=== PATIENT | male | born 1940 | race Caucasian/White ===

== ENCOUNTER 2017-01-20 18:45 | Inpatient (IN) | payer MEDICARE, BC ==
[2017-01-20] MEDS ORDERED: MORPHINE SULFATE 4 MG/ML SYRINGE IVP STA (18:59)
[2017-01-20] MEDS ORDERED: RX INFO: IV CONTRAST WAS GIVEN 1 EACH MISC MISCELLANE PRN (18:59)
[2017-01-20] MEDS ORDERED: ONDANSETRON 4 MG/2 ML VIAL IVP STA (18:59)
[2017-01-20] MEDS ORDERED: SODIUM CHLORIDE 0.9% 500 ML IV STA (18:59)
--- NOTE | 2017-01-20 19:01 | ED ---
General Adult HPI - General Chief complaint: Abdominal Pain Stated complaint: Abd Pain Time Seen by Provider: 01/20/17 18:47 Source: EMS Mode of arrival: EMS - History of Present Illness Initial comments: 77-year-old male presented for abdominal pain. Patient states symptoms began about 5 days ago would've been gradually worsening. States the pain got much worse today. He has had associated nausea and vomiting today. He denies any fevers or chills. He denies any diarrhea. He denies any chest pain or shortness of breath. He does state that he lost his one month ago and this is been hard on him. He denies any history of depression or current depression. He denies any abdominal surgical history. - Related Data Home Medications Medication Instructions Recorded Confirmed Allopurinol [Zyloprim] 100 mg PO DAILY 03/05/15 01/20/17 Meloxicam 15 mg PO DAILY 03/05/15 01/20/17 Simvastatin [Zocor] 20 mg PO HS 03/05/15 01/20/17 Tamsulosin [Flomax] 0.4 mg PO DAILY 03/05/15 01/20/17 Cholecalciferol [Vitamin D3] 5,000 unit PO DAILY 01/20/17 01/20/17 Allergies Allergy/AdvReac Type Severity Reaction Status Date / Time shellfish derived [Lobster] Allergy Rash/Hives Verified 01/20/17 19:16 Review of Systems ROS Statement: Those systems with pertinent positive or pertinent negative responses have been documented in the HPI. ROS Other: All systems not noted in ROS Statement are negative. Past Medical History Past Medical History: Cancer, Hyperlipidemia, Osteoarthritis (OA) Additional Past Medical History / Comment(s): prostate CA; gout History of Any Multi-Drug Resistant Organisms: None Reported Past Surgical History: Back Surgery, Hernia Repair, Prostate Surgery Additional Past Surgical History / Comment(s): hemorrhoids surg.; colonoscopy Past Anesthesia/Blood Transfusion Reactions: No Reported Reaction Smoking Status: Former smoker Past Alcohol Use History: None Reported Past Drug Use History: None Reported - Past Family History Sister(s) Family Medical History: Cancer General Exam - General Exam Comments Initial Comments: General: Awake and Alert. No acute distress. Patient appears uncomfortable.. Eyes: [place], EOM intact. No nystagmus. No scleral icterus. HENT: Atraumatic, normocephalic. Mucous membranes moist. Trachea midline. Neck: The neck is supple, there is no tenderness or JVD. Cardiovascular: Regular rate and rhythm. No murmur, rub, or gallop is appreciated. Distal pulses intact. Respiratory: Lungs are clear to auscultation bilaterally. No wheezes, rales, rhonchi. No respiratory distress. Gastrointestinal: Soft, diffuse tenderness with rebound. Non-distended. No masses or organomegaly noted. No CVA tenderness. Musculoskeletal: No tenderness. Normal ROM. No gross deformity. No strength deficits. Neurological: A&Ox3. CN II-XII grossly intact, There are no obvious motor or sensory deficits. Coordination appears grossly intact. Speech is normal. Skin: Skin is warm and dry and no rashes or lesions are noted. Psychiatric: Cooperative, appropriate mood & affect, normal judgment. Course Vital Signs 01/20/17 01/20/17 01/20/17 18:46 20:46 22:53 Temperature 97.6 F 97.9 F 97.4 F L Pulse Rate 79 87 62 Respiratory 16 16 15 Rate Blood Pressure 148/70 121/74 117/58 O2 Sat by Pulse 100 100 96 Oximetry Medical Decision Making - Medical Decision Making 37-year-old male presented for abdominal pain and nausea and vomiting. On initial exam patient with diffuse abdominal tenderness concerning for possible peritonitis. Lab work and imaging ordered. Pain and nausea medications and IV fluids ordered. CT abdomen and pelvis with evidence of SBO. Lab work with leukocytosis, likely reactive without CT evidence of infectious process. BMP stable. LFTs stable. Lipase negative. UA without evidence of infection Patient reevaluated, feeling much improved. Updated on results and imaging. Discussed recommendation for admission. Patient and family agreeable. Does not appear to require NG decompression at this time, but did discuss this with patient and will be required if condition worsens. I spoke with Dr. Mckeon, agrees with admission. I spoke with Dr. Cabello regarding medical management. - Lab Data Result diagrams: 01/20/17 18:50 01/20/17 18:50 Lab Results 01/20/17 01/20/17 01/20/17 Range/Units 18:50 18:50 20:35 WBC 14.7 H (3.8-10.6) k/uL RBC 5.37 (4.30-5.90) m/uL Hgb 16.0 (13.0-17.5) gm/dL Hct 47.5 (39.0-53.0) % MCV 88.6 (80.0-100.0) fL MCH 29.8 (25.0-35.0) pg MCHC 33.7 (31.0-37.0) g/dL RDW 12.9 (11.5-15.5) % Plt Count 232 (150-450) k/uL Neutrophils % 91 % Lymphocytes % 3 % Monocytes % 4 % Eosinophils % 1 % Basophils % 0 % Neutrophils # 13.3 H (1.3-7.7) k/uL Lymphocytes # 0.5 L (1.0-4.8) k/uL Monocytes # 0.6 (0-1.0) k/uL Eosinophils # 0.1 (0-0.7) k/uL Basophils # 0.0 (0-0.2) k/uL Sodium 139 (137-145) mmol/L Potassium 4.5 (3.5-5.1) mmol/L Chloride 107 (98-107) mmol/L Carbon Dioxide 16 L (22-30) mmol/L Anion Gap 16 mmol/L BUN 23 H (9-20) mg/dL Creatinine 0.90 (0.66-1.25) mg/dL Est GFR (MDRD) Af Amer >60 (>60 ml/min/1.73 sqM) Est GFR (MDRD) Non-Af >60 (>60 ml/min/1.73 sqM) Glucose 114 H (74-99) mg/dL Calcium 10.5 H (8.4-10.2) mg/dL Magnesium 1.8 (1.6-2.3) mg/dL Total Bilirubin 1.4 H (0.2-1.3) mg/dL AST 30 (17-59) U/L ALT 32 (21-72) U/L Alkaline Phosphatase 70 (38-126) U/L Total Protein 7.4 (6.3-8.2) g/dL Albumin 4.6 (3.5-5.0) g/dL Lipase 144 (23-300) U/L Urine Color Yellow Urine Appearance Clear (Clear) Urine pH 7.5 (5.0-8.0) Ur Specific [place] 1.016 (1.001-1.035) Urine Protein Trace H (Negative) Urine Glucose (UA) Negative (Negative) Urine Ketones 3+ H (Negative) Urine Blood Negative (Negative) Urine Nitrite Negative (Negative) Urine Bilirubin Negative (Negative) Urine Urobilinogen <2.0 (<2.0) mg/dL Ur Leukocyte Esterase Negative (Negative) - Radiology Data Radiology results: report reviewed, image reviewed Disposition Clinical Impression: SBO (small bowel obstruction), Abdominal pain, Nausea and vomiting, Leukocytosis Disposition: ADMITTED IP TO THIS [facility] Condition: Stable Decision to Admit Reason: Admit from EC
[2017-01-20 19:21] LABS: Basophils % (A) 0 %; Eosinophils # (A) 0.1 k/uL (0-0.7); Eosinophils % (A) 1 %; HCT 47.5 % (39.0-53.0); HDW 2.78; Luc # (Auto) 0.13; Luc % (Auto) 1; Lymphocytes # (A) 0.5 k/uL (1.0-4.8); Lymphocytes % (A) 3 %; MCH 29.8 pg (25.0-35.0); MCHC 33.7 g/dL (31.0-37.0); MCV 88.6 fL (80.0-100.0); Monocytes # (A) 0.6 k/uL (0-1.0); Monocytes % (A) 4 %; Neutrophils # (A) 13.3 k/uL (1.3-7.7); Neutrophils % (A) 91 %; RBC 5.37 m/uL (4.30-5.90); RDW 12.9 % (11.5-15.5); WBC 14.7 k/uL (3.8-10.6); WBC (Perox) 14.55
[2017-01-20 20:36] LABS: ALT 32 U/L (21-72); AST 30 U/L (17-59); Alkaline Phosphatase 70 U/L (38-126); Anion Gap 16 mmol/L; Blood Urea Nitrogen 23 mg/dL (9-20); Calcium 10.5 mg/dL (8.4-10.2); Carbon Dioxide 16 mmol/L (22-30); Chloride 107 mmol/L (98-107); Glucose 114 mg/dL (74-99); Magnesium 1.8 mg/dL (1.6-2.3); Non-African American GFR(MDRD) >60 (>60 ml/min/1.73 sqM); Potassium 4.5 mmol/L (3.5-5.1); Sodium 139 mmol/L (137-145); Total Bilirubin 1.4 mg/dL (0.2-1.3); Total Protein 7.4 g/dL (6.3-8.2)
[2017-01-20 21:14] LABS: Appearance,Urine Clear (Clear); Bilirubin,Urine Negative (Negative); Glucose,Urine (UA) Negative (Negative); Ketones,Urine 3+ (Negative); Leukocyte Esterase,Urine Negative (Negative); Nitrite,Urine Negative (Negative); PH, Urine 7.5 (5.0-8.0); Protein,Urine Trace (Negative); Specific Gravity,Urine 1.016 (1.001-1.035); UA Billing (MACRO vs. MICRO) CHEM; Urobilinogen,Urine <2.0 mg/dL (<2.0)
--- NOTE | 2017-01-20 21:26 | CT ---
EXAMINATION TYPE: CT abdomen pelvis w con DATE OF EXAM: 01/20/2017 9:16 PM COMPARISON: NONE HISTORY: Generalized Abdominal pain. History of prostate cancer CT DLP: 876.3 mGycm CONTRAST: CT scan of the abdomen and pelvis is performed without Oral Contrast and with IV Contrast, patient in jected with 100 mL of Omnipaque 300. FINDINGS: LUNG BASES-: No visible nodule. No infiltrate. LIVER/GB: No calcified gallstones. Small hepatic cyst inferior portion of the liver. Biliary tree i s of normal caliber. PANCREAS: No inflammation. No distinct mass. SPLEEN: No splenic enlargement. No lesion seen. ADRENALS: No nodule. No thickening. KIDNEYS/BLADDER: No hydronephrosis. No nephrolithiasis. No disctinct renal mass. Urinary bladder g rossly unremarkable. BOWEL: Dilated stomach and small bowel up to the right lower quadrant where there appears to be a tra nsition zone. Small bowel loops measure up to approximately 3.2 cm in greatest dimension demonstrates equalization. The findings are suspicious for early complete or high-grade partial obstruction. Ther e is decompressed distal small bowel. Large bowel contains fecal debris. Edema of the small bowel mes entery. GENITAL ORGANS: No gross abnormality. LYMPH NODES: No greater than 1cm abdominal or pelvic lymph nodes are appreciated. AORTA: No significant abnormality. OSSEOUS STRUCTURES: Severe degenerative changes throughout thoracolumbar spine. Postoperative changes lumbar spine. OTHER: No significant additional abnormality is seen. IMPRESSION: 1. The findings are suspicious for early complete or high-grade partial obstruction mid ileum.
[2017-01-20] MEDS ORDERED: SODIUM CHLORIDE 0.9% 1,000 ML IV STA (21:38)
[2017-01-20] MEDS ORDERED: MORPHINE SULFATE 4 MG/ML SYRINGE IV PRN (22:37)
[2017-01-20] MEDS ORDERED: HYDROcodone/APAP 5-325MG 1 EACH TAB PO PRN (22:37)
[2017-01-20] MEDS ORDERED: ACETAMINOPHEN TAB 325 MG TAB PO PRN (22:37)
[2017-01-20] MEDS ORDERED: ONDANSETRON 4 MG/2 ML VIAL IVP PRN (22:37)
[2017-01-20] MEDS ORDERED: NALOXONE 0.4 MG/ML 1 ML VIAL IV PRN (22:37)
[2017-01-21 00:33] VITALS: RESP 16
[2017-01-21] MEDS: LACTATED RINGERS 1,000 ML IV SCH ×3 (05:41→17:49)
[2017-01-21 07:26] LABS: Basophils % (A) 0 %; CH 29.5; CHCM 32.6; Eosinophils # (A) 0.1 k/uL (0-0.7); Eosinophils % (A) 1 %; HCT 44.7 % (39.0-53.0); HDW 2.57; HGB 14.6 gm/dL (13.0-17.5); Luc # (Auto) 0.11; Luc % (Auto) 1; Lymphocytes # (A) 0.6 k/uL (1.0-4.8); Lymphocytes % (A) 6 %; MCH 29.7 pg (25.0-35.0); MCHC 32.7 g/dL (31.0-37.0); MCV 90.9 fL (80.0-100.0); Mean Platelet Volume 8.4; Monocytes # (A) 0.8 k/uL (0-1.0); Monocytes % (A) 7 %; Neutrophils # (A) 9.9 k/uL (1.3-7.7); Neutrophils % (A) 86 %; RBC 4.91 m/uL (4.30-5.90); RDW 13.2 % (11.5-15.5); WBC 11.5 k/uL (3.8-10.6); WBC (Perox) 11.43
[2017-01-21 07:34] LABS: Glucose,Whole Blood 104 mg/dL (75-99)
[2017-01-21 07:44] LABS: Anion Gap 10 mmol/L; Blood Urea Nitrogen 25 mg/dL (9-20); Calcium 9.7 mg/dL (8.4-10.2); Carbon Dioxide 26 mmol/L (22-30); Chloride 106 mmol/L (98-107); Glucose 100 mg/dL (74-99); Magnesium 1.9 mg/dL (1.6-2.3); Non-African American GFR(MDRD) >60 (>60 ml/min/1.73 sqM); Potassium 4.4 mmol/L (3.5-5.1); Sodium 142 mmol/L (137-145)
[2017-01-21] MEDS ORDERED: HEPARIN SODIUM,PORCINE 5,000 UNIT/ML 1 ML VIAL SQ SCH (09:00)
--- NOTE | 2017-01-21 09:36 | P.GSHP ---
History of Present Illness H&P Date: 01/21/17 Chief Complaint: Abdominal pain, vomiting 1 The patient is a 77-year-old man who was in his normal state of health. Yesterday morning he had breakfast and developed discomfort across the Upper andlower abdomen. It felt like his breakfast just "sat there". The discomfort progressed throughout the day. He came into the emergency room last night. He did vomit on the way in and that helped relieve his discomfort. His bowels have been a little slowly bleed. He hadn't had a bowel movement in 3 days which is unusual for him. No blood in the stools or dark tarry stools. Appetite had been unchanged over the last few months. No weight loss. He hasn' t had a colonoscopy in 7 years. Denies any previous abdominal surgeries.He feels much better than when he came into the emergency room. - Review of Systems All systems: negative Past Medical History Past Medical History: Cancer, Hyperlipidemia, Osteoarthritis (OA) Additional Past Medical History / Comment(s): prostate CA; gout History of Any Multi-Drug Resistant Organisms: None Reported Past Surgical History: Adenoidectomy, Back Surgery, Hernia Repair, Prostate Surgery, Tonsillectomy Additional Past Surgical History / Comment(s): hemorrhoids surg.; colonoscopy Past Anesthesia/Blood Transfusion Reactions: No Reported Reaction Past Psychological History: No Psychological Hx Reported Smoking Status: Former smoker Past Alcohol Use History: None Reported Past Drug Use History: None Reported - Past Family History Sister(s) Family Medical History: Cancer Medications and Allergies Home Medications Medication Instructions Recorded Confirmed Type Allopurinol [Zyloprim] 100 mg PO DAILY 03/05/15 01/20/17 History Meloxicam 15 mg PO DAILY 03/05/15 01/20/17 History Simvastatin [Zocor] 20 mg PO HS 03/05/15 01/20/17 History Tamsulosin [Flomax] 0.4 mg PO DAILY 03/05/15 01/20/17 History Cholecalciferol [Vitamin D3] 5,000 unit PO DAILY 01/20/17 01/20/17 History Allergies Allergy/AdvReac Type Severity Reaction Status Date / Time shellfish derived [Lobster] Allergy Rash/Hives Verified 01/20/17 19:16 Surgical - Exam Osteopathic Statement: *. No significant issues noted on an osteopathic structural exam other than those noted in the History and Physical/Consult. Vital Signs Temp Pulse Resp BP Pulse Ox 97.6 F 79 16 148/70 100 01/20/17 18:46 01/20/17 18:46 01/20/17 18:46 01/20/17 18:46 01/20/17 18:46 - General well developed, well nourished, no distress - Eyes normal ocular movement - ENT normal nares, normal mucosa - Neck trachea midline, no lymphadectomy - Respiratory normal respiratory effort, clear to auscultation - Cardiovascular Rhythm: regular - Abdomen Abdomen: soft, tender (Mild epigastric tenderness without guarding or rebound), bowel sounds, no organomegaly, no surgical scars, distended (Mildly tympanitic to percussion, otherwise fairly soft) Results - Labs 01/21/17 07:05 01/21/17 07:05 Abnormal Lab Results - Last 24 Hours (Table) 01/20/17 01/20/17 01/20/17 Range/Units 18:50 18:50 20:35 WBC 14.7 H (3.8-10.6) k/uL Neutrophils # 13.3 H (1.3-7.7) k/uL Lymphocytes # 0.5 L (1.0-4.8) k/uL Carbon Dioxide 16 L (22-30) mmol/L BUN 23 H (9-20) mg/dL Glucose 114 H (74-99) mg/dL POC Glucose (mg/dL) (75-99) mg/dL Calcium 10.5 H (8.4-10.2) mg/dL Total Bilirubin 1.4 H (0.2-1.3) mg/dL Urine Protein Trace H (Negative) Urine Ketones 3+ H (Negative) 01/21/17 01/21/17 01/21/17 Range/Units 07:05 07:05 07:32 WBC 11.5 H (3.8-10.6) k/uL Neutrophils # 9.9 H (1.3-7.7) k/uL Lymphocytes # 0.6 L (1.0-4.8) k/uL Carbon Dioxide (22-30) mmol/L BUN 25 H (9-20) mg/dL Glucose 100 H (74-99) mg/dL POC Glucose (mg/dL) 104 H (75-99) mg/dL Calcium (8.4-10.2) mg/dL Total Bilirubin (0.2-1.3) mg/dL Urine Protein (Negative) Urine Ketones (Negative) Diabetes panel 01/20/17 01/21/17 Range/Units 18:50 07:05 Sodium 139 142 (137-145) mmol/L Potassium 4.5 4.4 (3.5-5.1) mmol/L Chloride 107 106 (98-107) mmol/L Carbon Dioxide 16 L 26 (22-30) mmol/L BUN 23 H 25 H (9-20) mg/dL Creatinine 0.90 0.93 (0.66-1.25) mg/dL Glucose 114 H 100 H (74-99) mg/dL Calcium 10.5 H 9.7 (8.4-10.2) mg/dL AST 30 (17-59) U/L ALT 32 (21-72) U/L Alkaline Phosphatase 70 (38-126) U/L Total Protein 7.4 (6.3-8.2) g/dL Albumin 4.6 (3.5-5.0) g/dL Calcium panel 01/20/17 01/21/17 Range/Units 18:50 07:05 Calcium 10.5 H 9.7 (8.4-10.2) mg/dL Phosphorus 3.0 (2.5-4.5) mg/dL Albumin 4.6 (3.5-5.0) g/dL Pituitary panel 01/20/17 01/21/17 Range/Units 18:50 07:05 Sodium 139 142 (137-145) mmol/L Potassium 4.5 4.4 (3.5-5.1) mmol/L Chloride 107 106 (98-107) mmol/L Carbon Dioxide 16 L 26 (22-30) mmol/L BUN 23 H 25 H (9-20) mg/dL Creatinine 0.90 0.93 (0.66-1.25) mg/dL Glucose 114 H 100 H (74-99) mg/dL Calcium 10.5 H 9.7 (8.4-10.2) mg/dL Adrenal panel 01/20/17 01/21/17 Range/Units 18:50 07:05 Sodium 139 142 (137-145) mmol/L Potassium 4.5 4.4 (3.5-5.1) mmol/L Chloride 107 106 (98-107) mmol/L Carbon Dioxide 16 L 26 (22-30) mmol/L BUN 23 H 25 H (9-20) mg/dL Creatinine 0.90 0.93 (0.66-1.25) mg/dL Glucose 114 H 100 H (74-99) mg/dL Calcium 10.5 H 9.7 (8.4-10.2) mg/dL Total Bilirubin 1.4 H (0.2-1.3) mg/dL AST 30 (17-59) U/L ALT 32 (21-72) U/L Alkaline Phosphatase 70 (38-126) U/L Total Protein 7.4 (6.3-8.2) g/dL Albumin 4.6 (3.5-5.0) g/dL - Imaging CT scan - pelvis: report reviewed, image reviewed Assessment and Plan (1) Gout Status: Acute (2) Nausea and vomiting Status: Acute (3) SBO (small bowel obstruction) Status: Acute Plan: The patient feels significantly better than when he was admitted through the emergency. I'll start him on a clear liquid diet. Serial exams and x-rays. Further recommendations to follow.
[2017-01-21 11:41] LABS: Glucose,Whole Blood 98 mg/dL (75-99)
--- NOTE | 2017-01-21 16:41 | P.CONS ---
History of Present Illness - Reason for Consult Consult date: 01/21/17 Medical management Requesting physician: Georgia Nelson - Chief Complaint Partial small bowel obstruction - History of Present Illness This is a 77-year-old male one of Dr. 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, and the patient has been under a lot of stress, patient stated that he was in his usual state of health about yesterday when he was eating breakfast in the morning and he had a bit of breakfast and he felt increased pressure and abdominal discomfort associated with increased nausea and had episode of vomiting on the way to the emergency department he described his pain as constant pain radiating from the left abdomen to the right abdomen and he has not passed any gas and he has not had any bowel movement for the past 2 days, according to patient this is abnormal for him because he has a bowel movement on a daily basis, patient ended up coming to the ER and he had a computed tomography scan of the abdomen and pelvis that showed possible acute small bowel obstruction he was admitted to the hospital under general surgery and I was asked to see the patient for medical management. Patient has not had any episode of vomiting has no NG tube in place, he has not passed any gas he was seen earlier by general surgery was recommended to start the patient on the clear liquid diet and obtained abdominal x-rays 2 views for further evaluation. Review of Systems Constitutional: Reports fever, Reports weakness, Denies chills, Denies chronic headaches, Denies weight gain, Denies weight loss Eyes: denies blurred vision, denies bulging eye, denies decreased vision Ears: deny: decreased hearing Ears, nose, mouth and throat: Denies dysphagia, Denies nose pain, Denies sore throat Cardiovascular: Denies chest pain, Denies dyspnea on exertion, Denies high blood pressure, Denies irregular heart beat, Denies phlebitis, Denies rapid heart beat, Denies shortness of breath Gastrointestinal: Reports abdominal pain, Reports bloating, Reports change in bowel habits, Reports constipation, Reports early satiety, Reports excessive gas , Reports heartburn, Reports indigestion, Reports loss of appetite, Reports nausea, Reports vomiting, Denies hematemesis, Denies hematochezia, Denies melena Genitourinary: Reports nocturia, Denies dysuria Musculoskeletal: absent: ankle pain, ankle stiffness, ankle swelling, elbow pain , elbow stiffness, elbow swelling, foot pain, foot stiffness, foot swelling, hand pain, hand stiffness, hand swelling, hip pain, hip stiffness, hip swelling , knee pain, knee stiffness, knee swelling, shoulder pain, shoulder stiffness, shoulder swelling, wrist pain, wrist stiffness, wrist swelling Integumentary: Denies pruritus, Denies rash Neurological: Denies numbness, Denies weakness Psychiatric: Denies anxiety, Denies depression Endocrine: Denies fatigue, Denies weight change Past Medical History Past Medical History: Cancer (Prostate cancer diagnosed 2013 post radiation and seeds.), Hyperlipidemia, Osteoarthritis (OA) Additional Past Medical History / Comment(s): prostate CA; gout History of Any Multi-Drug Resistant Organisms: None Reported Past Surgical History: Adenoidectomy, Back Surgery (Posterior lumbar discectomy with fusion 2006), Hernia Repair, Prostate Surgery, Tonsillectomy Additional Past Surgical History / Comment(s): hemorrhoids surg.; colonoscopy Past Anesthesia/Blood Transfusion Reactions: No Reported Reaction Past Psychological History: No Psychological Hx Reported Smoking Status: Former smoker (Patient used to smoke about pack every 3 days and the quit in 1967 he smoked for about 18 years.) Past Alcohol Use History: None Reported Past Drug Use History: None Reported - Past Family History Sister(s) Family Medical History: Cancer (Patient has one sister she is 80-year-old and survived a cancer.) Father Family Medical History: Cancer (Father at age of 77 from prostate cancer with metastatic disease to the lungs and lymph nodes.) Mother Family Medical History: No Reported History (Mother at age of 92 with no major medical problems.) Brother(s) Family Medical History: Diabetes Mellitus (Patient has 2 brothers one of them with diabetes.) Son(s) Family Medical History: Diabetes Mellitus (Patient has 3 sons one of them with diabetes.) Daughter(s) Family Medical History: No Reported History (Patient has one daughter no major medical problems.) Medications and Allergies Home Medications Medication Instructions Recorded Confirmed Type Allopurinol [Zyloprim] 100 mg PO DAILY 03/05/15 01/20/17 History Meloxicam 15 mg PO DAILY 03/05/15 01/20/17 History Simvastatin [Zocor] 20 mg PO HS 03/05/15 01/20/17 History Tamsulosin [Flomax] 0.4 mg PO DAILY 03/05/15 01/20/17 History Cholecalciferol [Vitamin D3] 5,000 unit PO DAILY 01/20/17 01/20/17 History Allergies Allergy/AdvReac Type Severity Reaction Status Date / Time shellfish derived [Lobster] Allergy Rash/Hives Verified 01/20/17 19:16 Physical Exam Vitals: Vital Signs Temp Pulse Pulse Resp BP BP Pulse Ox 01/21/17 08:00 80 16 01/21/17 07:00 97.1 F L 80 16 107/60 95 01/21/17 00:15 97.9 F 86 16 121/69 96 01/20/17 23:55 97.6 F 65 15 118/58 96 01/20/17 22:53 97.4 F L 62 15 117/58 96 01/20/17 20:46 97.9 F 87 16 121/74 100 01/20/17 18:46 97.6 F 79 16 148/70 100 Intake and Output 01/20/17 01/21/17 01/21/17 22:59 06:59 14:59 Intake Total 800 Balance 800 Intake: Intake, IV Titration 800 Amount Sodium Chloride 0.9% 1, 800 000 ml @ 100 mls/hr IV . Q10H STA Rx#:[id number] Other: Voiding Method Toilet Toilet Weight 90.718 kg - Constitutional General appearance: no acute distress - EENT Eyes: anicteric sclerae, EOMI, PERRLA, no ptosis, no scleral icterus, normal appearance ENT: hearing grossly normal, normal oropharynx, no thrush Ears: bilateral: normal - Neck Neck: no lymphadenopathy, normal ROM, no rigidity, no stridor, no thyromegaly Carotids: bilateral: upstroke normal Thyroid: bilateral: normal size - Respiratory Respiratory: bilateral: diminished, negative: dullness, rales, rhonchi, wheezing , prolonged expiration, prolonged inspiration - Cardiovascular Rhythm: regular Heart sounds: normal: S1, S2 Abnormal Heart Sounds: no S3 Gallop, no S4 Gallop, no click - Gastrointestinal General gastrointestinal: normal bowel sounds, soft, no splenomegaly, no tenderness, no umbilical hernia, no ventral hernia - Integumentary Integumentary: normal, normal turgor - Neurologic Neurologic: CNII-XII intact - Musculoskeletal Musculoskeletal: gait normal, strength equal bilaterally - Psychiatric Psychiatric: A&O x's 3, appropriate affect, intact judgment & insight Results CBC & Chem 7: 01/21/17 07:05 01/21/17 07:05 Labs: Abnormal Lab Results - Last 24 Hours (Table) 01/20/17 01/20/17 01/20/17 Range/Units 18:50 18:50 20:35 WBC 14.7 H (3.8-10.6) k/uL Neutrophils # 13.3 H (1.3-7.7) k/uL Lymphocytes # 0.5 L (1.0-4.8) k/uL Carbon Dioxide 16 L (22-30) mmol/L BUN 23 H (9-20) mg/dL Glucose 114 H (74-99) mg/dL POC Glucose (mg/dL) (75-99) mg/dL Calcium 10.5 H (8.4-10.2) mg/dL Total Bilirubin 1.4 H (0.2-1.3) mg/dL Urine Protein Trace H (Negative) Urine Ketones 3+ H (Negative) 01/21/17 01/21/17 01/21/17 Range/Units 07:05 07:05 07:32 WBC 11.5 H (3.8-10.6) k/uL Neutrophils # 9.9 H (1.3-7.7) k/uL Lymphocytes # 0.6 L (1.0-4.8) k/uL Carbon Dioxide (22-30) mmol/L BUN 25 H (9-20) mg/dL Glucose 100 H (74-99) mg/dL POC Glucose (mg/dL) 104 H (75-99) mg/dL Calcium (8.4-10.2) mg/dL Total Bilirubin (0.2-1.3) mg/dL Urine Protein (Negative) Urine Ketones (Negative) Assessment and Plan Plan: Assessment and plan: 1. Partial small bowel obstruction. The continue patient on clear liquid diet , obtain 2 view of the abdomen, she may have Dulcolax suppository 10 mg 1, continue patient IV fluid resuscitation the form of normal saline at 100 mL an hour, continue pain management as outlined by general surgery. 2. History of prostate cancer. Post radiation and seeds. Currently in remission. 3. Osteoarthritis. Stable at this time. 4. Gout. Continue allopurinol 100 mg orally once every day. 5. Hyperlipidemia. Continue simvastatin 20 mg at bedtime. 6. Grief. Appropriate due to the loss of his over a week ago. 7. DVT prophylaxis. Heparin 5000 units subcutaneously every 12 hours, bilateral knee-high CHARISSA hose. 8. GI prophylaxis. Continue patient on Pepcid 20 mg IV push every 12 hours[address] 9[address] you Dr[address] Nelson for allowing me to participate in the care of your patient we will follow the patient along with you.
[2017-01-21] MEDS: FAMOTIDINE 20 MG/2 ML VIAL IV SCH (20:20)
[2017-01-21] MEDS ORDERED: ATORVASTATIN 10 MG TAB PO SCH (21:00)
[2017-01-22] MEDS: HEPARIN SODIUM,PORCINE 5,000 UNIT/ML 1 ML VIAL SQ SCH ×2 (00:10→07:35)
[2017-01-22] MEDS: LACTATED RINGERS 1,000 ML IV SCH (02:08)
[2017-01-22 07:27] LABS: Basophils % (A) 1 %; CH 29.6; CHCM 32.5; Eosinophils # (A) 0.1 k/uL (0-0.7); Eosinophils % (A) 3 %; HCT 38.7 % (39.0-53.0); HDW 2.57; HGB 12.9 gm/dL (13.0-17.5); Luc # (Auto) 0.11; Luc % (Auto) 2; Lymphocytes # (A) 0.5 k/uL (1.0-4.8); Lymphocytes % (A) 10 %; MCH 30.5 pg (25.0-35.0); MCHC 33.3 g/dL (31.0-37.0); MCV 91.6 fL (80.0-100.0); Mean Platelet Volume 7.9; Monocytes # (A) 0.5 k/uL (0-1.0); Monocytes % (A) 9 %; Neutrophils # (A) 3.8 k/uL (1.3-7.7); Neutrophils % (A) 76 %; RBC 4.22 m/uL (4.30-5.90); RDW 13.4 % (11.5-15.5); WBC (Perox) 5.49
[2017-01-22 07:32] VITALS: BP 129/74; TEMP 98
[2017-01-22] MEDS: FAMOTIDINE 20 MG/2 ML VIAL IV SCH (07:35)
[2017-01-22 07:46] LABS: ALT 22 U/L (21-72); AST 20 U/L (17-59); Alkaline Phosphatase 44 U/L (38-126); Anion Gap 6 mmol/L; Blood Urea Nitrogen 20 mg/dL (9-20); Calcium 9.1 mg/dL (8.4-10.2); Carbon Dioxide 26 mmol/L (22-30); Chloride 109 mmol/L (98-107); Glucose 92 mg/dL (74-99); Magnesium 1.8 mg/dL (1.6-2.3); Non-African American GFR(MDRD) >60 (>60 ml/min/1.73 sqM); Potassium 4.1 mmol/L (3.5-5.1); Sodium 141 mmol/L (137-145); Total Bilirubin 1.2 mg/dL (0.2-1.3); Total Protein 5.6 g/dL (6.3-8.2)
[2017-01-22 07:48] VITALS: PULSE 80
--- NOTE | 2017-01-22 08:37 | XR ---
EXAMINATION TYPE: XR abdomen 2V DATE OF EXAM: 01/22/2017 6:52 AM COMPARISON: 01/20/2017 HISTORY: Abdominal distention TECHNIQUE: One view abdominal series FINDINGS: The osseous structures are intact. The bowel gas pattern is nonspecific. Air-fluid levels and promin ent small bowel loops are seen in the left abdomen. Postsurgical change involving the vertebral column and within the pelvis. Arthropathy of the hip join ts. IMPRESSION: 1. Nonspecific abdomen. Partial bowel obstruction in the differential diagnosis.
[2017-01-22] MEDS ORDERED: ALLOPURINOL 100 MG TAB PO SCH (09:00)
[2017-01-22] MEDS ORDERED: TAMSULOSIN 0.4 MG CAP.ER.24H PO SCH (09:00)
[2017-01-22] MEDS ORDERED: CHOLECALCIFEROL 1,000 UNIT TAB PO SCH (12:00)
--- NOTE | 2017-01-22 13:06 | DS ---
DATE OF ADMISSION: 01/20/2017 DATE OF DISCHARGE: 01/22/2017 ADMISSION DIAGNOSES: 1. Abdominal pain. 2. Partial small bowel obstruction. 3. History of prostate cancer. 4. Nausea, vomiting. DISCHARGE DIAGNOSES: 1. Abdominal pain. 2. Partial small bowel obstruction. 3. History of prostate cancer. 4. Nausea, vomiting. SURGEON: Dr. Nelson. CONSULTING: Dr. Cabello. GROSS FINDINGS: The patient is a 77-year-old man who was admitted through the ER with abdominal pain, some nausea and vomiting. CT was suggestive of a partial small bowel obstruction. He was made n.p.o. By the following day, he was feeling much better. He was initiated on clear liquid diet, which was advanced to a soft. By 01/22, he was stooling. His pain had resolved. Nausea and vomiting have resolved He was felt to be stable for discharge. FINAL DISPOSITION: Discharged home with his regular home meds of allopurinol, meloxicam, simvastatin, Flomax and vitamin D3 to follow up with his primary care doctor in one week. Call if there is any problems.
--- NOTE | 2017-01-22 15:53 | P.PN ---
Subjective This is a 77-year-old male one of Dr. 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, and the patient has been under a lot of stress, patient stated that he was in his usual state of health about yesterday when he was eating breakfast in the morning and he had a bit of breakfast and he felt increased pressure and abdominal discomfort associated with increased nausea and had episode of vomiting on the way to the emergency department he described his pain as constant pain radiating from the left abdomen to the right abdomen and he has not passed any gas and he has not had any bowel movement for the past 2 days, according to patient this is abnormal for him because he has a bowel movement on a daily basis, patient ended up coming to the ER and he had a computed tomography scan of the abdomen and pelvis that showed possible acute small bowel obstruction he was admitted to the hospital under general surgery and I was asked to see the patient for medical management. Patient has not had any episode of vomiting has no NG tube in place, he has not passed any gas he was seen earlier by general surgery was recommended to start the patient on the clear liquid diet and obtained abdominal x-rays 2 views for further evaluation. 01/22: Patient states he is feeling much better today. He did have a bowel movement. He denies any abdominal pain and is requesting to go home. Patient is being discharged home today in stable condition. Objective - Vital Signs Vital signs: Vital Signs Temp 98.0 F 01/22/17 07:00 Pulse 80 01/22/17 07:44 Resp 16 01/22/17 07:44 BP 129/74 01/22/17 07:00 Pulse Ox 96 01/22/17 07:00 Intake & Output 01/21/17 01/22/17 01/22/17 18:59 06:59 18:59 Intake Total 500 2049 Balance 500 2049 Weight 90.718 kg Intake: IV 500 1050 Lactated Ringers 1,000 ml 500 1050 @ 100 mls/hr IV .Q10H OLENA Rx#:[id number] Oral 1000 Other: Voiding Method Toilet Toilet Toilet # Voids 2 1 1 - Exam General appearance: no acute distress - EENT Eyes: anicteric sclerae, EOMI, PERRLA, no ptosis, no scleral icterus, normal appearance ENT: hearing grossly normal, normal oropharynx, no thrush Ears: bilateral: normal - Neck Neck: no lymphadenopathy, normal ROM, no rigidity, no stridor, no thyromegaly Carotids: bilateral: upstroke normal Thyroid: bilateral: normal size - Respiratory Respiratory: bilateral: diminished, negative: dullness, rales, rhonchi, wheezing , prolonged expiration, prolonged inspiration - Cardiovascular Rhythm: regular Heart sounds: normal: S1, S2 Abnormal Heart Sounds: no S3 Gallop, no S4 Gallop, no click - Gastrointestinal General gastrointestinal: normal bowel sounds, soft, no splenomegaly, no tenderness, no umbilical hernia, no ventral hernia - Integumentary Integumentary: normal, normal turgor - Neurologic Neurologic: CNII-XII intact - Musculoskeletal Musculoskeletal: gait normal, strength equal bilaterally - Psychiatric Psychiatric: A&O x's 3, appropriate affect, intact judgment & insight - Labs CBC & Chem 7: 01/22/17 07:17 01/22/17 07:14 Labs: Abnormal Lab Results - Last 24 Hours (Table) 01/22/17 01/22/17 Range/Units 07:14 07:17 RBC 4.22 L (4.30-5.90) m/uL Hgb 12.9 L (13.0-17.5) gm/dL Hct 38.7 L (39.0-53.0) % Lymphocytes # 0.5 L (1.0-4.8) k/uL Chloride 109 H (98-107) mmol/L Total Protein 5.6 L (6.3-8.2) g/dL Albumin 3.3 L (3.5-5.0) g/dL Assessment and Plan Plan: 1. Partial small bowel obstruction, resolved. 2. History of prostate cancer. Post radiation and seeds. Currently in remission. 3. Osteoarthritis. Stable at this time. 4. Gout. Continue allopurinol 100 mg orally once every day. 5. Hyperlipidemia. Continue simvastatin 20 mg at bedtime. 6. Grief. Appropriate due to the loss of his over a week ago. 7. DVT prophylaxis. Heparin 5000 units subcutaneously every 12 hours, bilateral knee-high CHARISSA hose. 8. GI prophylaxis. Continue patient on Pepcid 20 mg IV push every 12 hours. Discharge plan: Return home Impression and plan of care have been directed as dictated by the signing physician. Alicia Dubon nurse practitioner acting as scribe for signing physician.
== END 2017-01-22 12:36 | disposition home or self-care (01) | DRG 390 ==
LOC: EC 18:45 → 3SUR 22:37
PROVIDERS: ADMIT Surgery; ATTEND Surgery
DX: K56.60 Unspecified intestinal obstruction (principal); E55.9 Vitamin D deficiency, unspecified; E78.5 Hyperlipidemia, unspecified; D72.829 Elevated white blood cell count, unspecified; M10.9 Gout, unspecified; M19.90 Unspecified osteoarthritis, unspecified site; F43.21 Adjustment disorder with depressed mood; Z79.899 Other long term (current) drug therapy; Z87.891 Personal history of nicotine dependence; Z85.46 Personal history of malignant neoplasm of prostate
CPT/HCPCS: 36415; 74020; 74177; 80048; 80053; 81003; 83690; 83735; 84100; 85025; 96361; 96374; 96375; 99285

== ENCOUNTER 2018-08-11 13:03 | Observation (INO) | payer MEDICARE, BC ==
--- NOTE | 2018-08-11 13:31 | ED ---
General Adult HPI - General Chief complaint: Chest Pain Stated complaint: chest pain Time Seen by Provider: 08/11/18 13:06 Source: patient, RN notes reviewed Mode of arrival: wheelchair Limitations: no limitations - History of Present Illness Initial comments: This is an 78-year-old male who presents emergency Department complaining of left-sided chest pain that radiates from his left flank to under his left breast and around to the back. Patient states he might be a little more short of breath recurs and might have a little bit of sweating when it occurs. Patient states it only lasts a few minutes every time it occurs per patient states it started about a month ago. Patient states a month ago he drove down to [place] he just recently flew back that is monique in the ER today. Patient denies any fever chills or cough. Patient denies any leg swelling or calf tenderness. Patient denies any nausea vomiting diarrhea. Patient denies abdominal pain. Patient denies being lightheaded dizzy or having any near syncopal episodes. Patient denies any recent injury or trauma. - Related Data Home Medications Medication Instructions Recorded Confirmed Meloxicam 15 mg PO DAILY 03/05/15 08/11/18 Simvastatin [Zocor] 20 mg PO HS 03/05/15 08/11/18 Tamsulosin [Flomax] 0.4 mg PO DAILY 03/05/15 08/11/18 Cholecalciferol [Vitamin D3] 5,000 unit PO DAILY 01/20/17 08/11/18 Omeprazole [PriLOSEC] 20 mg PO DAILY 08/11/18 08/11/18 Simethicone [Gas-X] 125 mg PO DAILY 08/11/18 08/11/18 Allergies Allergy/AdvReac Type Severity Reaction Status Date / Time shellfish derived [Lobster] Allergy Rash/Hives Verified 08/11/18 14:19 Review of Systems ROS Statement: Those systems with pertinent positive or pertinent negative responses have been documented in the HPI. ROS Other: All systems not noted in ROS Statement are negative. Past Medical History Past Medical History: Cancer, Hyperlipidemia, Osteoarthritis (OA) Additional Past Medical History / Comment(s): prostate CA; gout History of Any Multi-Drug Resistant Organisms: None Reported Past Surgical History: Adenoidectomy, Back Surgery, Hernia Repair, Prostate Surgery, Tonsillectomy Additional Past Surgical History / Comment(s): hemorrhoids surg.; colonoscopy Past Anesthesia/Blood Transfusion Reactions: No Reported Reaction Past Psychological History: No Psychological Hx Reported Smoking Status: Former smoker Past Alcohol Use History: None Reported Past Drug Use History: None Reported - Past Family History Father Family Medical History: Cancer (Father at age of 77 from prostate cancer with metastatic disease to the lungs and lymph nodes.) Mother Family Medical History: No Reported History (Mother at age of 92 with no major medical problems.) Brother(s) Family Medical History: Diabetes Mellitus (Patient has 2 brothers one of them with diabetes.) Son(s) Family Medical History: Diabetes Mellitus (Patient has 3 sons one of them with diabetes.) Daughter(s) Family Medical History: No Reported History (Patient has one daughter no major medical problems.) Sister(s) Family Medical History: Cancer (Patient has one sister she is 80-year-old and survived a cancer.) General Exam - General Exam Comments Initial Comments: GENERAL: Patient is well-developed and well-nourished. Patient is nontoxic and well- hydrated and is in no acute distress. ENT: Neck is soft and supple. No significant lymphadenopathy is noted. Oropharynx is clear. Moist mucous membranes. Neck has full range of motion without eliciting any pain. EYES: The sclera were anicteric and conjunctiva were pink and moist. Extraocular movements were intact and pupils were equal round and reactive to light. Eyelids were unremarkable. PULMONARY: Unlabored respirations. Good breath sounds bilaterally. No audible rales rhonchi or wheezing was noted. CARDIOVASCULAR: There is a regular rate and rhythm without any murmurs gallops or rubs. ABDOMEN: Soft and nontender with normal bowel sounds. No palpable organomegaly was noted. There is no palpable pulsatile mass. SKIN: Skin is clear with no lesions or rashes and otherwise unremarkable. NEUROLOGIC: Patient is alert and oriented x3. Cranial nerves II through XII are grossly intact. Motor and sensory are also intact. Normal speech, volume and content. Symmetrical smile. MUSCULOSKELETAL: Normal extremities with adequate strength and full range of motion. LYMPHATICS: No significant lymphadenopathy is noted PSYCHIATRIC: Normal psychiatric evaluation. Limitations: no limitations Course Vital Signs 08/11/18 13:06 Temperature 97.7 F Pulse Rate 85 Respiratory 16 Rate Blood Pressure 166/75 O2 Sat by Pulse 100 Oximetry Medical Decision Making - Medical Decision Making EKG shows normal sinus rhythm at 73 bpm HI interval 180 QRS is 72 QT interval 346 QTC is 31 per patient's EKG shows no ST segment elevation or depression or T wave abnormalities are noted. Chest x-ray shows no acute abnormality - Lab Data Result diagrams: 08/11/18 14:00 08/11/18 14:00 Lab Results 08/11/18 08/11/18 08/11/18 Range/Units 14:00 14:00 14:00 WBC 10.3 (3.8-10.6) k/uL RBC 5.13 (4.30-5.90) m/uL Hgb 15.3 (13.0-17.5) gm/dL Hct 47.1 (39.0-53.0) % MCV 91.7 (80.0-100.0) fL MCH 29.8 (25.0-35.0) pg MCHC 32.5 (31.0-37.0) g/dL RDW 13.7 (11.5-15.5) % Plt Count 216 (150-450) k/uL Neutrophils % 92 % Lymphocytes % 3 % Monocytes % 3 % Eosinophils % 1 % Basophils % 0 % Neutrophils # 9.5 H (1.3-7.7) k/uL Lymphocytes # 0.3 L (1.0-4.8) k/uL Monocytes # 0.3 (0-1.0) k/uL Eosinophils # 0.1 (0-0.7) k/uL Basophils # 0.0 (0-0.2) k/uL PT (9.0-12.0) sec INR (<1.2) APTT (22.0-30.0) sec D-Dimer (<0.60) mg/L FEU Sodium 138 (137-145) mmol/L Potassium 5.0 (3.5-5.1) mmol/L Chloride 105 (98-107) mmol/L Carbon Dioxide 27 (22-30) mmol/L Anion Gap 6 mmol/L BUN 31 H (9-20) mg/dL Creatinine 1.01 (0.66-1.25) mg/dL Est GFR (CKD-EPI)AfAm 81 (>60 ml/min/1.73 sqM) Est GFR (CKD-EPI)NonAf 70 (>60 ml/min/1.73 sqM) Glucose 97 (74-99) mg/dL Calcium 9.7 (8.4-10.2) mg/dL Magnesium 2.1 (1.6-2.3) mg/dL Total Bilirubin 1.0 (0.2-1.3) mg/dL AST 24 (17-59) U/L ALT 32 (21-72) U/L Alkaline Phosphatase 48 (38-126) U/L Total Creatine Kinase 54 L (55-170) U/L CK-MB (CK-2) 2.7 H (0.0-2.4) ng/mL CK-MB (CK-2) Rel Index 5.0 Troponin I <0.012 (0.000-0.034) ng/mL Total Protein 6.4 (6.3-8.2) g/dL Albumin 3.7 (3.5-5.0) g/dL 08/11/18 Range/Units 14:00 WBC (3.8-10.6) k/uL RBC (4.30-5.90) m/uL Hgb (13.0-17.5) gm/dL Hct (39.0-53.0) % MCV (80.0-100.0) fL MCH (25.0-35.0) pg MCHC (31.0-37.0) g/dL RDW (11.5-15.5) % Plt Count (150-450) k/uL Neutrophils % % Lymphocytes % % Monocytes % % Eosinophils % % Basophils % % Neutrophils # (1.3-7.7) k/uL Lymphocytes # (1.0-4.8) k/uL Monocytes # (0-1.0) k/uL Eosinophils # (0-0.7) k/uL Basophils # (0-0.2) k/uL PT 10.5 (9.0-12.0) sec INR 1.0 (<1.2) APTT 23.8 (22.0-30.0) sec D-Dimer 0.44 (<0.60) mg/L FEU Sodium (137-145) mmol/L Potassium (3.5-5.1) mmol/L Chloride (98-107) mmol/L Carbon Dioxide (22-30) mmol/L Anion Gap mmol/L BUN (9-20) mg/dL Creatinine (0.66-1.25) mg/dL Est GFR (CKD-EPI)AfAm (>60 ml/min/1.73 sqM) Est GFR (CKD-EPI)NonAf (>60 ml/min/1.73 sqM) Glucose (74-99) mg/dL Calcium (8.4-10.2) mg/dL Magnesium (1.6-2.3) mg/dL Total Bilirubin (0.2-1.3) mg/dL AST (17-59) U/L ALT (21-72) U/L Alkaline Phosphatase (38-126) U/L Total Creatine Kinase (55-170) U/L CK-MB (CK-2) (0.0-2.4) ng/mL CK-MB (CK-2) Rel Index Troponin I (0.000-0.034) ng/mL Total Protein (6.3-8.2) g/dL Albumin (3.5-5.0) g/dL Disposition Clinical Impression: Chest pain Disposition: ADMITTED IP TO THIS HOSP Referrals: Andrea Gaytan DO [Primary Care Provider] - 1-2 days
[2018-08-11 14:26] LABS: Basophils % (A) 0 %; Eosinophils # (A) 0.1 k/uL (0-0.7); Eosinophils % (A) 1 %; HCT 47.1 % (39.0-53.0); HGB 15.3 gm/dL (13.0-17.5); Lymphocytes # (A) 0.3 k/uL (1.0-4.8); Lymphocytes % (A) 3 %; MCH 29.8 pg (25.0-35.0); MCHC 32.5 g/dL (31.0-37.0); MCV 91.7 fL (80.0-100.0); Mean Platelet Volume 7.5; Monocytes # (A) 0.3 k/uL (0-1.0); Monocytes % (A) 3 %; Neutrophils # (A) 9.5 k/uL (1.3-7.7); Neutrophils % (A) 92 %; Platelet Count 216 k/uL (150-450); RBC 5.13 m/uL (4.30-5.90); RDW 13.7 % (11.5-15.5); WBC 10.3 k/uL (3.8-10.6)
--- NOTE | 2018-08-11 14:26 | XR ---
EXAMINATION TYPE: XR chest 2V DATE OF EXAM: 08/11/2018 COMPARISON: 03/08/2013 HISTORY: 78-year-old male with chest pain for one month TECHNIQUE: PA and lateral views FINDINGS: Heart normal size. Similar elongation/ectasia of the thoracic aorta. Strandy atelectasis in the lower lungs. No consolidation or pleural effusion. IMPRESSION: Chronic changes without acute cardiopulmonary process.
[2018-08-11 14:40] LABS: D-Dimer 0.44 mg/L FEU (<0.60); Partial Thromboplastin Time 23.8 sec (22.0-30.0); Prothrombin Time 10.5 sec (9.0-12.0)
[2018-08-11 14:43] LABS: Albumin 3.7 g/dL (3.5-5.0); Calcium 9.7 mg/dL (8.4-10.2); Magnesium 2.1 mg/dL (1.6-2.3); Total Protein 6.4 g/dL (6.3-8.2)
[2018-08-11 14:50] LABS: Creatine Kinase 54 U/L (55-170)
[2018-08-11 15:03] LABS: Creatine Kinase MB 2.7 ng/mL (0.0-2.4); Troponin I <0.012 ng/mL (0.000-0.034)
[2018-08-11] MEDS ORDERED: NITROGLYCERIN SL TABS 0.4 MG TAB SUBLINGUAL PRN (15:15)
--- NOTE | 2018-08-11 20:02 | P.HPIM ---
History of Present Illness this is a pleasant 78 yo M with pmh of Hyperlipidemia , osteoarthritis . history of prostate cancer and gout, who present with one month history of chest pain. however his doctor tolked to him today and asked him to come to emergency room for more evalutaion . the pain is central and radiating around to the back. pt says it is not that strong about 2-4/10. felt in between sharp and dull. no assiciated dyspnea or sweating . pt is long time ex-smoker , no h/ o diabetes. no alcoholism or illicit drugs. in [facility] emergency room Review of Systems CONSTITUTIONAL: No fever, no malaise, no fatigue. HEENT: No recent visual problems or hearing problems. Denied any sore throat. CARDIOVASCULAR: No orthopnea, PND, no palpitations, no syncope. PULMONARY: no cough, no hemoptysis. GASTROINTESTINAL: No diarrhea, no nausea, no vomiting, no abdominal pain. Normoactive bowel sounds. NEUROLOGICAL: No headaches, no weakness, no numbness. HEMATOLOGICAL: Denies any bleeding or petechiae. GENITOURINARY: Denies any burning micturition, frequency, or urgency. MUSCULOSKELETAL/RHEUMATOLOGICAL: Denies any joint pain, swelling, or any muscle pain. ENDOCRINE: Denies any polyuria or polydipsia. Past Medical History Past Medical History: Cancer, Hyperlipidemia, Osteoarthritis (OA) Additional Past Medical History / Comment(s): prostate CA; gout History of Any Multi-Drug Resistant Organisms: None Reported Past Surgical History: Adenoidectomy, Back Surgery, Hernia Repair, Prostate Surgery, Tonsillectomy Additional Past Surgical History / Comment(s): hemorrhoids surg.; colonoscopy Past Anesthesia/Blood Transfusion Reactions: No Reported Reaction Past Psychological History: No Psychological Hx Reported Smoking Status: Former smoker Past Alcohol Use History: None Reported Past Drug Use History: None Reported - Past Family History Father Family Medical History: Cancer (Father at age of 77 from prostate cancer with metastatic disease to the lungs and lymph nodes.) Mother Family Medical History: No Reported History (Mother at age of 92 with no major medical problems.) Brother(s) Family Medical History: Diabetes Mellitus (Patient has 2 brothers one of them with diabetes.) Son(s) Family Medical History: Diabetes Mellitus (Patient has 3 sons one of them with diabetes.) Daughter(s) Family Medical History: No Reported History (Patient has one daughter no major medical problems.) Sister(s) Family Medical History: Cancer (Patient has one sister she is 80-year-old and survived a cancer.) Medications and Allergies Home Medications Medication Instructions Recorded Confirmed Type Meloxicam 15 mg PO DAILY 03/05/15 08/11/18 History Simvastatin [Zocor] 20 mg PO HS 03/05/15 08/11/18 History Tamsulosin [Flomax] 0.4 mg PO DAILY 03/05/15 08/11/18 History Cholecalciferol [Vitamin D3] 5,000 unit PO DAILY 01/20/17 08/11/18 History Omeprazole [PriLOSEC] 20 mg PO DAILY 08/11/18 08/11/18 History Simethicone [Gas-X] 125 mg PO DAILY 08/11/18 08/11/18 History Allergies Allergy/AdvReac Type Severity Reaction Status Date / Time shellfish derived [Lobster] Allergy Rash/Hives Verified 08/11/18 14:19 Physical Exam Vitals: Vital Signs Temp Pulse Resp BP Pulse Ox 08/11/18 18:00 78 157/87 97 08/11/18 17:30 93 130/68 98 08/11/18 17:00 141/72 08/11/18 16:30 72 156/106 97 08/11/18 16:00 76 130/70 98 08/11/18 15:30 72 136/68 97 08/11/18 15:00 72 165/73 97 08/11/18 14:30 133/73 08/11/18 14:00 76 134/73 97 08/11/18 13:47 96 08/11/18 13:06 97.7 F 85 16 166/75 100 Intake and Output 08/11/18 08/11/18 08/11/18 06:59 14:59 22:59 Other: Weight 86.183 kg GENERAL: The patient is alert and oriented x3, not in any acute distress. Well developed, well nourished. HEENT: Pupils are round and equally reacting to light. EOMI. No scleral icterus. No conjunctival pallor. Normocephalic, atraumatic. No pharyngeal erythema. No thyromegaly. CARDIOVASCULAR: S1 and S2 present. No murmurs, rubs, or gallops. PULMONARY: Chest is clear to auscultation, no wheezing or crackles. ABDOMEN: Soft, nontender, nondistended, normoactive bowel sounds. No palpable organomegaly. MUSCULOSKELETAL: No joint swelling or deformity. EXTREMITIES: No cyanosis, clubbing, or pedal edema. NEUROLOGICAL: Gross neurological examination did not reveal any focal deficits. SKIN: No rashes. Results CBC & Chem 7: 08/11/18 14:00 08/11/18 14:00 Labs: Abnormal Lab Results - Last 24 Hours (Table) 08/11/18 08/11/18 08/11/18 Range/Units 14:00 14:00 14:00 Neutrophils # 9.5 H (1.3-7.7) k/uL Lymphocytes # 0.3 L (1.0-4.8) k/uL BUN 31 H (9-20) mg/dL Total Creatine Kinase 54 L (55-170) U/L CK-MB (CK-2) 2.7 H (0.0-2.4) ng/mL Assessment and Plan Assessment: chest pain , r/u cardiac causes h/o gout h/o hypertension h/o Hyperlipidemia h/o prostate cancer Plan: this is a pleasant 78 yo M who presents with chest pain . echocardiogram . serial enzyms of the heart and EKG, calll cariology cno continue with the same treatment , continue with symptomatic treatment , resume home medication , monitor lytes and vitals , , cardiology consult is called . GI and DVT prophylaxis , further recommendation based upon pt clinical course and progress DVT prophylaxis subcutaneous hlovenox GI prophylaxis Pepcid Prognosis is guarded
[2018-08-11] MEDS: ENOXAPARIN 40 MG/0.4 ML SYRINGE SQ SCH (20:33)
[2018-08-11] MEDS: FAMOTIDINE 20 MG/2 ML VIAL IV SCH (20:34)
[2018-08-11 21:48] LABS: Creatine Kinase 43 U/L (55-170)
[2018-08-11 22:01] LABS: Creatine Kinase MB 1.9 ng/mL (0.0-2.4); Troponin I <0.012 ng/mL (0.000-0.034)
[2018-08-12 03:10] LABS: Cholesterol 139 mg/dL (<200); HDL Cholesterol 56 mg/dL (40-60); LDL Cholesterol,Calculated 63 mg/dL (0-99); Triglycerides 100 mg/dL (<150)
[2018-08-12 03:26] LABS: Creatine Kinase 32 U/L (55-170)
[2018-08-12 03:39] LABS: Creatine Kinase MB 1.7 ng/mL (0.0-2.4); Troponin I <0.012 ng/mL (0.000-0.034)
[2018-08-12 08:08] VITALS: RESP 16
--- NOTE | 2018-08-12 08:18 | CONS ---
CONSULTATION Mr. Poole is an 78-year-old male with a history of hyperlipidemia, who presented with symptoms of chest discomfort. His discomfort has been going on for the last months on and off related to certain position and lasting for a few seconds. Because of that, he came into the emergency room on the advice of Dr. Gaytan, his primary care physician, and he was subsequently admitted. The patient is average in his exercise tolerance, has no exertional chest discomfort. His breathing is stable. He has no dizziness, palpitation, or syncope. No PND, orthopnea, or peripheral edema. He has been seen by Dr. Jean Paul Avila in the past and underwent cardiac catheterization about 3 years ago that according to him was unremarkable. His coronary risk factors negative for hypertension or diabetes. He stopped smoking in the 60s. He is hyperlipidemic. MEDICATION: His medications at home include simvastatin 20 mg daily, Flomax 0.4 mg daily, meloxicam on a p.r.n. basis, vitamin D, and Prilosec. REVIEW OF SYSTEMS: RESPIRATORY SYSTEM: He has no documented history of asthma, emphysema or bronchitis. GI SYSTEM: No recent GI bleeding. No peptic ulcer disease. SYSTEM: No dysuria or hematuria. NERVOUS SYSTEM: No stroke or seizure. PHYSICAL EXAMINATION: He is an 78-year-old male, alert, oriented, in no apparent distress. Anxious to get out of the hospital. Blood pressure 114/64 with the heart in the 60s. HEAD: Normocephalic. EYES: Sclerae anicteric. NECK: Good carotid upstroke. No bruit. No jugular venous distention. LUNGS: Clear to auscultation. HEART: Regular rate and rhythm. S1, S2. No S3. No S4. No murmur or rub. ABDOMEN: Soft, nontender. Positive bowel sounds. No organomegaly. EXTREMITIES: No edema. Intact distal pulses. LAB DATA: Lab data revealed troponin less than 0.012. Cholesterol 139, LDL of 63. Hemoglobin of 15.3. BUN and creatinine 31 and 1.01. EKG revealed a sinus mechanism, normal axis and intervals, normal echocardiogram. Chest x-ray shows no infiltrate. IMPRESSION: 1. Chest discomfort atypical for ischemic heart disease probably noncardiac in etiology. 2. Hyperlipidemia. RECOMMENDATION: I would recommend to proceed with stress echocardiogram and if there is no evidence of inducible ischemia, patient should be able to be discharged home today. Thank you for this consult. We will follow with you. MMCATHERINE / IJN: [id number] /
[2018-08-12] MEDS ORDERED: ATORVASTATIN 40 MG TAB PO SCH (09:00)
[2018-08-12] MEDS ORDERED: ASPIRIN 325 MG TAB PO SCH (09:00)
--- NOTE | 2018-08-12 11:09 | ECHOF ---
Referral Reason:chest pain MEASUREMENTS -------- HEIGHT: 182.9 cm WEIGHT: 86.2 kg BP: 114/64 IVSd: 1.5 cm (0.6 - 1.1) LVIDd: 3.1 cm (3.9 - 5.3) LVPWd: 1.1 cm (0.6 - 1.1) IVSs: 1.8 cm LVIDs: 2.3 cm LVPWs: 1.3 cm LAESV Index (A-L): 25.41 ml/m Ao Diam: 3.7 cm (2.0 - 3.7) AV Cusp: 1.7 cm (1.5 - 2.6) MV EXCURSION: 15.488 mm (> 18.000) MV EF SLOPE: 43 mm/s (70 - 150) EPSS: 0.2 cm MV E Rosendo: 1.04 m/s MV DecT: 271 ms MV A Rosendo: 1.28 m/s MV E/A Ratio: 0.81 RAP: 5.00 mmHg RVSP: 23.35 mmHg FINDINGS -------- Sinus rhythm. This was a technically adequate study. The left ventricular size is normal. There is moderate concentric left ventricular hypertrophy. O verall left ventricular systolic function is normal with, an EF between 55 - 60 %. The right ventricle is normal in size. Normal LA size by volume 22+/-6 ml/m2. The right atrial size is normal. Perimembraneous VSD There is mild aortic valve sclerosis. There is mild aortic regurgitation. The mitral valve leaflets are mildly thickened. Mild mitral regurgitation is present. Mild tricuspid regurgitation present. There is no evidence of pulmonary hypertension. The right v entricular systolic pressure, as measured by Doppler, is 23.35mmHg. There is no pulmonic regurgitation present. The aortic root size is normal. There is no pericardial effusion. CONCLUSIONS -------- 1. Sinus rhythm. 2. The left ventricular size is normal. 3. There is moderate concentric left ventricular hypertrophy. 4. Overall left ventricular systolic function is normal with, an EF between 55 - 60 %. 5. Normal LA size by volume 22+/-6 ml/m2. 6. Perimembraneous VSD 7. There is mild aortic valve sclerosis. 8. There is mild aortic regurgitation. 9. The mitral valve leaflets are mildly thickened. 10. Mild mitral regurgitation is present. 11. Mild tricuspid regurgitation present. 12. There is no evidence of pulmonary hypertension. 13. There is no pulmonic regurgitation present. 14. The aortic root size is normal. 15. There is no pericardial effusion. GENERAL INTERNAL MEDICINE PHYSICIAN: Kenzie Drake RDCS
[2018-08-12] MEDS: FAMOTIDINE 20 MG/2 ML VIAL IV SCH (11:44)
[2018-08-12] MEDS: ENOXAPARIN 40 MG/0.4 ML SYRINGE SQ SCH (11:44)
[2018-08-12 12:01] VITALS: BP 147/72; PULSE 84; TEMP 97.4
--- NOTE | 2018-08-12 13:09 | ECHOS ---
STRESS ECHOCARDIOGRAM INDICATIONS: Chest pain. BASELINE HEART RATE: 74 BASELINE BLOOD PRESSURE: 137/67 MAXIMUM HEART RATE: 140 MAXIMUM BLOOD PRESSURE: 157/63 85% MPHR: 119 100% MPHR: 140 METS: 5.6 MAXIMUM STAGE REACHED: I TOTAL EXERCISE TIME: 4:17 CLINICAL INFORMATION: Baseline rhythm is sinus mechanism, rate of 74, normal axis, intervals, normal echocardiogram. Baseline blood pressure 137/67 mmHg. Patient exercised on Colton protocol for 4 minute 17 seconds reaching peak rate of 140 beats per minute which is equal to 100% maximum predicted heart rate. Peak blood pressure 157/63 mmHg. Test was terminated due to fatigue. There was no chest pain. Electrocardiograph monitoring revealed rare PVCs. There was no evidence of diagnostic ischemic ST deviation. FINDINGS: Baseline echocardiogram revealed normal wall motion. At peak exercise, there was normal wall motion augmentation with no hypokinesis or dyskinesis. CONCLUSION: 1. Average exercise tolerance was normal. 2. Normal stress echocardiograph with no evidence of stress induced ischemia. MMODL / IJN: [id number] /
--- NOTE | 2018-08-12 18:20 | P.DS ---
Providers Date of admission: 08/11/18 15:15 Attending physician: Bao Sidhu MD Consults: 08/11/18 15:15 Consult Physician Urgent Consulting Provider: [facility] Consult Reason/Comments: Chest pain Do you want consulting provider notified?: Yes Primary care physician: Andrea Spencer [facility] Course: this is a pleasant 78 yo M with pmh of Hyperlipidemia , osteoarthritis . history of prostate cancer and gout, who present with one month history of chest pain. however his doctor talked to him and asked him to come to emergency room for more evalutaion . the pain is central and radiating around to the back. pt says it is not that strong about 2-4/10. felt in between sharp and dull. no assiciated dyspnea or sweating . pt is long time ex-smoker , no h/o diabetes. no alcoholism or illicit drugs. Patient has been evaluated by pointer helper and he had negative stress echo. Patient was cleared by pointer helper for discharge. On the time of discharge patient states that his chest pain has been completely resolved. Current it is 0/10 in severity. Patient denies dyspnea or any other symptoms. Patient was eager to go home. The chest x-ray he has normal heart size. And the character of pain was very low suspicious for aortic aneurysm. We checked his blood pressure on both sides and there is no significant difference as it was on the left side 117/66 and right side 105/49. Patient was cleared by cardiology team for discharge Problems and management plan was discussed with the patient and he verbalized understanding and acceptance On stable and can be discharged home however he needs follow-up as an outpatient. Patient agrees to call and make an appointment with his PCP in one week. physical exam Gen.: Patient alert awake and oriented X 3, NOT IN DISTRESS CVS: s1-s2, RRR, no murmur CHEST:bilateral CTA, no wheezing or crepitation Abdomen: Soft, no tenderness, no distention, positive bowel sounds Extremities: No leg edema or induration Time spent more than 35 minutes Plan - Discharge Summary Discharge Rx Participant: No New Discharge Prescriptions: New Aspirin 325 mg PO DAILY #7 tab Continue Tamsulosin [Flomax] 0.4 mg PO DAILY Simvastatin [Zocor] 20 mg PO HS Cholecalciferol [Vitamin D3] 5,000 unit PO DAILY Omeprazole [PriLOSEC] 20 mg PO DAILY Simethicone [Gas-X] 125 mg PO DAILY Discontinued Meloxicam 15 mg PO DAILY Discharge Medication List Simvastatin [Zocor] 20 mg PO HS 03/05/15 [History] Tamsulosin [Flomax] 0.4 mg PO DAILY 03/05/15 [History] Cholecalciferol [Vitamin D3] 5,000 unit PO DAILY 01/20/17 [History] Omeprazole [PriLOSEC] 20 mg PO DAILY 08/11/18 [History] Simethicone [Gas-X] 125 mg PO DAILY 08/11/18 [History] Aspirin 325 mg PO DAILY #7 tab 08/12/18 [Rx] Follow up Appointment(s)/Referral(s): Andrea Gaytan DO [Primary Care Provider] - 1-2 days Activity/Diet/Wound Care/Special Instructions: cardiac diet activity is limited till you see your doctor Discharge Disposition: HOME SELF-CARE
== END 2018-08-12 13:22 | disposition home or self-care (01) ==
LOC: EC 13:03 → 1SOBS 15:15
PROVIDERS: ADMIT Internal Medicine; ATTEND Internal Medicine
DX: R07.89 Other chest pain (principal); R61 Generalized hyperhidrosis; M19.90 Unspecified osteoarthritis, unspecified site; E78.5 Hyperlipidemia, unspecified; I10 Essential (primary) hypertension; M10.9 Gout, unspecified; Z79.899 Other long term (current) drug therapy; Z79.1 Long term (current) use of non-steroidal anti-inflammatories (NSAID); Z91.013 Allergy to seafood; Z85.46 Personal history of malignant neoplasm of prostate; Z87.891 Personal history of nicotine dependence; Z83.3 Family history of diabetes mellitus; Z80.1 Family history of malignant neoplasm of trachea, bronchus and lung; Z80.7 Family history of other malignant neoplasms of lymphoid, hematopoietic and related tissues
CPT/HCPCS: 96372 ×2; 96374; 96376; 99285; 36415; 93005; 93306; 93351; 85379; 80061; 80053; 82550 ×2; 82553 ×2; 83735; 84484 ×2; 85025; 85610; 85730; 71046; G0378 ×2; J1650 ×2